=== PATIENT | male | born 1995 | race Caucasian/White ===

== ENCOUNTER 2019-06-06 | Emergency (ER) | payer BC, OTHER ==
[~2019-06-06] VITALS: Ht 180.3 cm; Wt 132.0 kg
[2019-06-06 00:05] VITALS: BP 158/95
--- NOTE | 2019-06-06 00:39 | PHYS DOC ---
Past Medical History Past Medical History: Other Additional Past Medical Histor: AUTISM Past Surgical History: Other Additional Past Surgical Histo: BONE MARROW BX Smoking Status: Current Every Day Smoker Alcohol Use: Rarely Adult General Chief Complaint Chief Complaint: DENTAL PROBLEM HPI HPI Patient is a 24 year old male who presents with dental pain. The patient states that the pain has been ongoing for weeks to months. The patient states however that today he was chewing and his tooth cracked more and he has been in severe pain since that time. He rates his pain as 10/10 in severity and sharp. Denies fever or any other complaints. Complete ROS were reviewed and found to be within normal limits, except as documented in the [facility] Allergies Allergies Allergies Coded Allergies Type Severity Reaction Last Updated Verified acetaminophen Allergy Mild 'ABDOMINAL PAIN' 06/06/19 Yes Physical Exam Physical Exam Constitutional: Well developed, well nourished, no acute distress, non-toxic appearance. [] HENT: Normocephalic, atraumatic, bilateral external ears normal, oropharynx moist, no oral exudates, nose normal. Tooth # 32 has cracked filling with nerve exposure. Neurologic: Alert and oriented X 3, normal motor function, normal sensory function, no focal deficits noted. [] Psychologic: Affect normal, judgement normal, mood normal. [] Current Patient Data Vital Signs Vital Signs Date Time Temp Pulse Resp B/P (MAP) Pulse Ox O2 Delivery O2 Flow Rate FiO2 06/06/19 00:05 98.9 60 16 158/95 (116) 100 Room Air 98.9 EKG EKG [] Radiology/Procedures Radiology/Procedures [] Course & Med Decision Making Course & Med Decision Making Pertinent Labs and Imaging studies reviewed. (See chart for details) Will give Dental balls and Toradol and place on Augmentin. Dragon Disclaimer Dragon Disclaimer This electronic medical record was generated, in whole or in part, using a voice recognition dictation system. Departure Departure Impression: Primary Impression: Pain, dental Disposition: 01 HOME, SELF-CARE Condition: STABLE Referrals: NO PCP (PCP) Patient Instructions: Carbamide Peroxide dental solution Additional Instructions: Thank you for visiting [facility]. We appreciate you trusting us with your care. If any additional problems come up don't hesitate to return to visit us. Please follow up with your primary care provider so they can plan additional care if needed and know about the problem that you had. If symptoms worsen come back to the Emergency Department. Any concerning symptoms that start such as chest pain, shortness of air, weakness or numbness on one side of the body, running high fevers or any other concerning symptoms return to the ER. Please follow up with a dentist as soon as you can. CESILIA STINSON APRN Jun 06, 2019 00:39
[2019-06-06] MEDS ORDERED: MAG HYDROX/ALUMINUM HYD/SIMETH 30 ML ORAL.SUSP PO ONE (00:45)
[2019-06-06] MEDS ORDERED: KETOROLAC TROMETHAMINE 10 MG TABLET PO ONE (00:45)
[2019-06-06] MEDS ORDERED: LIDOCAINE 2% VISCOUS 15 ML SOLUTION. SWSW ONE (00:45)
== END 2019-06-06 00:48 | disposition home or self-care (01) ==
LOC: ER
DX: K08.89 Other specified disorders of teeth and supporting structures (principal); F17.200 Nicotine dependence, unspecified, uncomplicated; Z98.890 Other specified postprocedural states; Z88.6 Allergy status to analgesic agent
CPT/HCPCS: 99283; 99284